=== PATIENT | male | born 2000 | race African-American/Black ===

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

== ENCOUNTER 2021-01-24 17:23 | Emergency (ER) | payer OTHER ==
[2021-01-24 17:45] VITALS: BP 127/66; PULSE 66; TEMP 99.2; BMI 29.0
== END 2021-01-24 19:32 | disposition home or self-care (01) ==
LOC: JERFT 17:23
DX: S93.402A Sprain of unspecified ligament of left ankle, initial encounter (principal)
CPT/HCPCS: 73610-TC-LT-FY; 73630-TC-LT; 99284-25

== ENCOUNTER 2021-06-08 16:23 | Emergency (ER) | payer OTHER ==
[2021-06-08 16:29] VITALS: BP 129/78; PULSE 78; TEMP 98.6; BMI 31.0
[2021-06-08] MEDS ORDERED: IBUPROFEN 400 MG TABLET (FP) PO ONE ×2 (17:09→17:17)
== END 2021-06-08 17:21 | disposition home or self-care (01) ==
LOC: JERFT 16:23
DX: M79.672 Pain in left foot (principal); X50.3XXA Overexertion from repetitive movements, initial encounter
CPT/HCPCS: 99283-25